=== PATIENT | female | born 1940 | race Caucasian/White ===

== ENCOUNTER 2016-09-06 08:27 | Emergency (ER) | payer MEDICARE, BC ==
--- NOTE | 2016-09-06 08:48 | Emergency Department Record ---
History of Present Illness - General Chief complaint: Rash Stated complaint: REDNESS IN R BREAST Time Seen by Provider: 09/06/16 08:42 Mode of Arrival: Ambulatory - History of Present Illness Initial comments: skin bruise possible broken blood vessel and she had breast cancer in that breast 19 years ago and it is located on the inferior side of the right breast . No signs of shingles rash. she recalls possibly injuring it one week ago. Onset/Timin -: Days(s) Location: Chest Severity: Moderate Severity scale (1-10): 1 - Related Data Home Medications Medication Instructions Recorded Confirmed Last Taken Clonazepam [Clonazepam] 0.5 mg PO DAILY 04/24/14 09/06/16 1 Day Ago Levothyroxine Sodium [Synthroid] 50 mcg PO DAILY 04/24/14 09/06/16 1 Day Ago Omeprazole [Omeprazole] 20 mg PO DAILY 04/24/14 09/06/16 1 Day Ago Simvastatin [Simvastatin] 10 mg PO DAILY 04/24/14 09/06/16 1 Day Ago Cholecalciferol (Vitamin D3) 4,000 unit PO DAILY 11/05/14 09/06/16 1 Day Ago [Vitamin D3] Lisinopril [Zestril] 2.5 mg PO DAILY 11/05/14 09/06/16 1 Day Ago Triamterene/Hydrochlorothiazid 1 each PO DAILY 03/12/15 09/06/16 1 Day Ago [Dyazide 37.5-25 Capsule] Previous Rx's Medication Instructions Recorded Meclizine HCl [Antivert] 25 mg PO BID #15 tab 07/18/15 Allergies Allergy/AdvReac Type Severity Reaction Status Date / Time Penicillins Allergy Intermediate SWELLING Verified 09/06/16 08:40 (GENERAL) cephalexin monohydrate Allergy Unknown PT UNSURE Verified 09/06/16 08:40 [From Keflex] OF REACTION erythromycin base Allergy Unknown PT UNSURE Verified 09/06/16 08:40 OF REACTION tobramycin Allergy Unknown PT UNSURE Verified 09/06/16 08:40 OF REACTION Travel Screening - Travel/Exposure Within Last 30 Days Have you traveled within the last 30 days?: No - Travel/Exposure Within Last Year Have you traveled outside the [place] in the last year?: No - Additonal Travel Details Have you been exposed to anyone with a communicable illness?: No - Travel Symptoms Symptom Screening: None Review of Systems Reviewed: No additional complaints except as noted below Constitutional: Reports: As per HPI. Denies: Chills, Fever, Malaise, Night sweats, Weakness, Weight change Eyes: Reports: As per HPI. Denies: Eye discharge, Eye pain, Photophobia, Vision change ENT: Reports: As per HPI. Denies: Congestion, Dental pain, Ear pain, Epistaxis , Hearing loss, Throat pain Respiratory: Reports: As per HPI. Denies: Cough, Dyspnea, Hemoptysis, Stridor, Wheezes Cardiovascular: Reports: As per HPI. Denies: Arrhythmia, Chest pain, Dyspnea on exertion, Edema, Murmurs, Orthopnea, Palpitations, Paroxysmal nocturnal dyspnea, Rheumatic Fever, Syncope Endocrine: Reports: As per HPI. Denies: Fatigue, Heat or cold intolerance, Polydipsia, Polyuria Gastrointestinal: Reports: As per HPI. Denies: Abdominal pain, Constipation, Diarrhea, Hematemesis, Hematochezia, Melena, Nausea, Vomiting Genitourinary: Reports: As per HPI. Denies: Abnormal menses, Discharge, Dyspareunia, Dysuria, Frequency, Hematuria, Incontinence, Retention, Urgency Musculoskeletal: Reports: As per HPI. Denies: Arthralgia, Back pain, Gout, Joint swelling, Myalgia, Neck pain Skin: Reports: As per HPI. Denies: Bruising, Change in color, Change in hair/ nails, Lesions, Pruritus, Rash Neurological: Reports: As per HPI. Denies: Abnormal gait, Confusion, Headache, Numbness, Paresthesias, Seizure, Tingling, Tremors, Vertigo, Weakness Psychiatric: Reports: As per HPI. Denies: Anxiety, Auditory hallucinations, Depression, Homicidal thoughts, Suicidal thoughts, Visual hallucinations Hematological/Lymphatic: Reports: As per HPI. Denies: Anemia, Blood Clots, Easy bleeding, Easy bruising, Swollen glands Past Medical History - SOCIAL HISTORY Smoking Status: Never smoker Alcohol Use: None Drug Use: None - RESPIRATORY Hx Respiratory Disorders: No - CARDIOVASCULAR Hx Cardio Disorders: Yes Hx Hypertension: Yes Hx Irregular Heartbeat: Yes (on stress test) Comment:: high cholesterol - NEURO Hx Neuro Disorders: Yes Comment:: torticallis - GI Hx GI Disorders: Yes Hx Reflux: Yes - Hx Genitourinary Disorders: No - ENDOCRINE Hx Endocrine Disorders: Yes Hx Thyroid Disease: Yes - MUSCULOSKELETAL Hx Musculoskeletal Disorders: Yes Hx Arthritis: Yes - PSYCH Hx Psych Problems: Yes Hx Anxiety: Yes - HEMATOLOGY/ONCOLOGY Hx Hematology/Oncology Disorders: No Hx Cancer: Yes (right breast) Hx Chemotherapy: Yes (1997) Hx Radiation Therapy: Yes (1997) Family Medical History Any Significant Family History?: Yes Hx Cancer: Mother *Cancer Comment: lung Hx Diabetes: Father Hx Heart Disease: Mother Physical Exam - General General Appearance: Alert, Oriented x3, Cooperative, No acute distress - Head Head exam: Normal inspection - Eye Eye exam: Normal appearance, PERRL Pupils: Normal accommodation - ENT ENT exam: Normal exam, Mucous membranes moist, Normal external ear exam, Normal orophraynx, TM's normal bilaterally Ear exam: Normal external inspection. negative: External canal tenderness Nasal Exam: Normal inspection. negative: Discharge, Sinus tenderness Mouth exam: Normal external inspection, Tongue normal Teeth exam: Normal inspection. negative: Dental caries Throat exam: Normal inspection. negative: Tonsillar erythema, Tonsillar exudate - Neck Neck exam: Normal inspection, Full ROM. negative: Tenderness - Respiratory Respiratory exam: Normal lung sounds bilaterally. negative: Respiratory distress - Cardiovascular Cardiovascular Exam: Regular rate, Normal rhythm, Normal heart sounds - GI/Abdominal GI/Abdominal exam: Soft, Normal bowel sounds. negative: Tenderness - Rectal Rectal exam: Deferred - exam: Deferred - Extremities Extremities exam: Normal inspection, Full ROM, Normal capillary refill. negative: Tenderness - Back Back exam: Reports: Normal inspection, Full ROM. Denies: Muscle spasm, Rash noted, Tenderness - Neurological Neurological exam: Alert, Normal gait, Oriented X3, Reflexes normal - Psychiatric Psychiatric exam: Normal affect, Normal mood - Skin Skin exam: Other (right breast bruise and broken blood vessel) Course Vital Signs 09/06/16 08:35 Temperature 98.0 F Pulse Rate 83 Respiratory 14 Rate Blood Pressure 183/86 Pulse Ox 96 Disposition Clinical Impression: Traumatic ecchymosis of right female breast Qualifiers: Encounter type: initial encounter Qualified Code(s): S20.01XA - Contusion of right breast, initial encounter Disposition: Home, Self-Care Condition: (1) Good Instructions: Contusion in Adults, Quality Control Lab Technician (GEN) Additional Instructions: use triple antibiotic ointment on that area twice a day ie bacitracin or neosporin follow up with Dr. Garza in one week. to make sure it goes away. Forms: Patient Portal Access Time of Disposition: 08:48
== END 2016-09-06 08:55 | disposition home or self-care (01) ==
LOC: ER 08:27
DX: S20.01XA Contusion of right breast, initial encounter (principal); X58.XXXA Exposure to other specified factors, initial encounter
CPT/HCPCS: 99282

== ENCOUNTER 2017-01-03 15:37 | Emergency (ER) | payer MEDICARE, BC ==
[2017-01-03] MEDS ORDERED: DIPHENHYDRAMINE ELIXIR 25MG/10ML UD PO ONE (16:32)
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
== END 2017-01-03 16:42 | disposition home or self-care (01) ==
LOC: ER 15:37
DX: T63.443A Toxic effect of venom of bees, assault, initial encounter (principal); R22.0 Localized swelling, mass and lump, head
CPT/HCPCS: 99282